=== PATIENT | male | born 1970 | race Asian ===

== ENCOUNTER 2018-10-06 06:26 | Inpatient (IN) | payer MEDICAID ==
[~2018-10-06 06:26] MED LIST: cefOXitin SODIUM 2 GM in NS 100 ML IV ONE
[2018-10-06] MEDS ORDERED: LR 1,000 ML IV ONE (06:46)
[2018-10-06] MEDS ORDERED: ROCURONIUM 50 MG/5 ML VIAL ONE (07:05)
[2018-10-06] MEDS ORDERED: HYDROXYCHLOROQUINE SULFATE 200 MG TAB PO ONE (07:22)
[2018-10-06] MEDS ORDERED: MIDAZOLAM 2 MG/2 ML VIAL IVP ONE (07:22)
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
--- NOTE | 2018-10-06 07:46 | PDHPUP ---
History & Physical Update H&P update statement: This history and physical update is based on an assessment of the patient which was completed after admission or registration (within 24 hours), but prior to the surgery/procedure. H&P update: H&P reviewed & patient examined, changes noted (Asked if I could also fix parastomal hernia. I described that I may be able to put sutures but would not do a mesh repair due to concurrent colectomy)
[2018-10-06] MEDS ORDERED: BUPIVACAINE 0.5% 30 ML SDV ONE (07:59)
[2018-10-06] MEDS ORDERED: PROPOFOL 200 MG/20 ML VIAL ONE (08:00)
[2018-10-06] MEDS ORDERED: fentaNYL 100 MCG/2 ML INJ ONE ×4 (08:00→14:10)
[2018-10-06] MEDS ORDERED: HYDROCORTISONE 100 MG/2 ML VIAL ONE (08:01)
[2018-10-06 08:08] LABS: PLATELET COUNT 283 10^3/uL (150-400)
[2018-10-06] MEDS ORDERED: PHENYLEPHRINE 10 MG/ML SDV ONE (08:39)
[2018-10-06] MEDS ORDERED: GLYCOPYRROLATE 0.2 MG/1 ML VIAL ONE ×2 (09:00)
[2018-10-06] MEDS ORDERED: cefOXitin SODIUM 2 GM in NS 100 ML IV ONE (12:00)
[2018-10-06] MEDS ORDERED: ONDANSETRON 4 MG/2 ML VIAL ONE (13:15)
[2018-10-06] MEDS ORDERED: HYDROmorphONE/DILAUDID 2 MG/ML INJ ONE ×2 (13:54→15:28)
[2018-10-06] MEDS ORDERED: ONDANSETRON DISINTEGRATING 4 MG TAB PO PRN ×2 (13:55→19:06)
[2018-10-06] MEDS ORDERED: NS 1,000 ML IV SCH (13:55)
[2018-10-06] MEDS ORDERED: HYDROmorphONE/DILAUDID 1 MG/ML INJ IVP PRN (13:55)
[2018-10-06] MEDS ORDERED: HYDROmorphONE/DILAUDID 2 MG/ML INJ IVP PRN (14:00)
[2018-10-06] MEDS ORDERED: MEPERIDINE 25 MG/0.5 ML AMP IVP PRN (14:00)
[2018-10-06] MEDS ORDERED: DIAZEPAM 5 MG/ML 1 ML SYR IVP PRN (14:00)
[2018-10-06] MEDS ORDERED: NALOXONE HCL 0.4 MG/ML INJ IVP PRN (14:00)
[2018-10-06] MEDS ORDERED: ALBUTEROL 3 ML DEYVIAL IH PRN (14:00)
[2018-10-06] MEDS ORDERED: PROMETHAZINE HCL 25 MG/ML INJ IVP PRN (14:00)
[2018-10-06] MEDS ORDERED: LR 500 ML IV PRN (14:00)
[2018-10-06] MEDS ORDERED: ONDANSETRON 4 MG/2 ML VIAL IVP PRN (14:00)
[2018-10-06] MEDS ORDERED: METOCLOPRAMIDE 10 MG/2 ML VIAL IVP PRN (14:00)
[2018-10-06] MEDS ORDERED: PHENYLEPHRINE HCL 100 MCG/ML SYR IVP PRN (14:00)
[2018-10-06] MEDS ORDERED: fentaNYL 100 MCG/2 ML INJ IVP PRN (14:00)
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
[2018-10-06] MEDS: HYDROCORTISONE 100 MG/2 ML VIAL IVP SCH ×2 (21:32→21:41)
[2018-10-06] MEDS: HYDROmorphONE/DILAUDID 1 MG/ML INJ IVP PRN (21:32)
[2018-10-07] MEDS: NS 1,000 ML IV SCH ×3 (02:09→21:37)
[2018-10-07] MEDS: HYDROCORTISONE 100 MG/2 ML VIAL IVP SCH ×2 (02:09→07:53)
[2018-10-07] MEDS: HYDROmorphONE/DILAUDID 1 MG/ML INJ IVP PRN ×3 (02:09→22:15)
[2018-10-07 06:16] LABS: PLATELET COUNT 271 10^3/uL (150-400)
[2018-10-07] MEDS: HYDROCODONE/APAP 5/325 TAB PO PRN ×3 (07:52→14:37)
--- NOTE | 2018-10-07 09:00 | POSTANESTH ---
Post Anesthetic Evaluation Cardiovascular Status: Normal, Stable Respiratory Status: Normal, Stable Level of Consciousness/Mental Status: Can Participate in Eval Pain Control: Adequate, Prn Tx Ordered Nausea/Vomiting Control: Adequate, Prn Tx Ordered Complications Possibly Related to Anesthesia: None Noted
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
--- NOTE | 2018-10-07 09:54 | PDMN ---
Medical Necessity Medical necessity: [facility] IP only surgery; cpt 65407 Sigmoid Colectomy
--- NOTE | 2018-10-07 11:29 | GOP ---
[f rep st] OPERATIVE REPORT DATE OF OPERATION: 10/07/2018 SURGEON: Steph Hale MD DIRECTOR OF ASSESSMENT: IRON Camacho. ANESTHESIA: General. ANESTHESIOLOGIST: Zaira Ramos MD. PREOPERATIVE DIAGNOSIS: 1. Diversion colitis. 2. Sacral decubitus ulcer. 3. Paraplegia. POSTOPERATIVE DIAGNOSIS: 1. Diversion colitis. 2. Sacral decubitus ulcer. 3. Paraplegia. 4. Sacral decubitus ulcer stage IV. PROCEDURE PERFORMED: Minimally invasive proctectomy. Debridement of skin, soft tissue, and bone of sacrum, with drain placement and closure. FINDINGS: Thickened distal colon. Initially had a leak at the rectal stump, which was oversewn. SPECIMENS: Colon. ESTIMATED BLOOD LOSS: 50 cc. INDICATIONS: The patient is a 47-year-old man, who is paraplegic. He had a colostomy performed. He is now suffering from diversion colitis. He also has a sacral decubitus ulcer. Typically flap is u sed in this situation, but he reports that he had closed well with primary closure over a drain. DESCRIPTION OF PROCEDURE: The patient was brought into the operating room, placed supine on the tabl e, and general anesthesia was administered. He had performed bowel prep with an enema since it was j ust the rectal stump. He was placed supine on the table, and general anesthesia was administered. H e was then placed in lithotomy position. His abdomen and perineum were prepped and draped in the usu al sterile fashion. I infiltrated all sites with 0.5% Marcaine prior to making incisions. I made an incision by his umbilicus. I elevated it, and I inserted a Veress needle. I did not feel that this penetrated through the peritoneum due to his body habitus. I then exchanged this for the long Veres s needle, which passed the hanging drop test, and his abdomen insufflated easily to a pressure of 15 mmHg. I was unable to get the standard 8 mm trocar through this site, and so I got an extra-long 8 m m trocar, placed the camera in place, and entered the abdominal space. I explored his abdomen. Ther e were a few adhesions towards the midline, but otherwise it was clear. Under direct vision, I place d an 8 mm trocar and enlarged this to a 12 middle mm trocar by the right iliac crest, and in a diagon al line from the right iliac crest to the left costal margin I placed 2 additional 8 mm trocars. He was placed in the Trendelenburg position. I brought the robot in and docked it. I placed the camera . Under direct vision, I introduced the and the Harmonic. An welder assistant port was made as well on the right lower abdomen. I moved to the console. I explored his pelvis. He had a very long rectal stump. There was a lot of omentum and generous mesentery, as well due to his body habitus. His sigmoid was tacked to the anterior abdominal wall. I was then able to divide this down while pro tecting the ostomy. I stayed very close to the sigmoid and rectal stump, and I continued my dissecti on down into the pelvis to the level of the peritoneal reflection. I inserted a dilator, and there w as approximately 6 to 7 cm length left of the rectal stump. I cut the rectum, and I tried to extract the specimen through the rectum, but it was simply too big. The epiploica were enlarged. The colon was enlarged in some portions, and I was concerned about tearing his anus while trying to extract th e rectum. I then took the specimen up. I grabbed the rectal stump, and then I used a stapler to jason se the rectum. When I performed an air insufflation test, there was a large leak. I had to perform a considerable amount of filling with 2-0 Vicryl to eliminate the leak. Once air insufflation test w as satisfactory, I undocked the robot. I enlarged the incision by the stapler port, and I extracted the colon specimen. Even with a small Kiran retractor and the fascial defect being enlarged, the sp ecimen was still very difficult to get out of the abdominal wall due to the edema in the epiploica. I removed also the staple line. I placed a 15 round silicone drain directed to his pelvis. This was sewn into place with 3-0 nylon. Clean closure was performed. I closed the fascia with [address] a[address] a subcutaneous drain due to his adiposity in the extraction site incision, and then I stapled th e incisions closed. Sterile dressings were applied. Next, he was rolled into the lateral position, and his bottom was prepped and draped in the usual fashion. I explored the area on his bottom, and i t traversed more towards the right buttock. I opened this area with electrocautery. I then used Mis ericka to debride the skin and soft tissue. Bone was palpable at the base of the wound. There were no overt signs of infection. Hemostasis was achieved. I placed a 19 round silicone drain in this area and sutured this into place with 3-0 nylon. Dressings were applied. He was placed back into the brannon pine position, awakened, extubated, and transferred to PACU in stable condition. /[id number]/MODL
[2018-10-07] MEDS: LOSARTAN POTASSIUM 50 MG TAB PO SCH (11:31)
[2018-10-07] MEDS: predniSONE 5 MG TAB PO SCH (14:36)
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
--- NOTE | 2018-10-07 20:48 | HOSPPROG ---
Hospitalist Progress Note Assessment/Plan: 47yo M T12 paraplegic s/p proctectomy with sacral stage IV decubitus ulcer debridement -POD #1 -wound/surgical management per Dr Hale Inflammatory arthritis -sees rheum Dr Simon in [place] [employer] -on low dose chronic steroids bc of recent flare Obesity HTN -home meds Anemia -watch for stability Dispo >2 mdnts for wound care/healing, unsure home vs SNF FULL code DVT prophy per surgery - Subjective: Says pain OK with meds, stool in colostomy firm. No CP/SOB. Wants to go home, has an old hospital bed at home. Willing to consider other options too. Objective: Vital Signs Temp Pulse Resp BP Pulse Ox 98.2 F 83 18 100/59 L 96 10/07/18 16:00 10/07/18 16:00 10/07/18 16:00 10/07/18 16:00 10/07/18 16:00 Laboratory Results 10/07/18 05:18 10/07/18 05:18 10/06/18 10/07/18 10/08/18 11:59 11:59 11:59 Intake Total 350 1225 Output Total 605 1400 Balance -255 -175 - Time Spent With Patient Time Spent with Patient: greater than 35 minutes (total floor time) Time Spent with Patient: Greater than 35 minutes spent on this patients care, greater than 50% of time spent counseling, educating, and coordinating care regarding the above mentioned plan. - Physical Exam Constitutional: no apparent distress, obese Eyes: anicteric sclera, EOMI Ears, Nose, Mouth, Throat: moist mucous membranes, hearing normal Cardiovascular: regular rate and rhythym, No edema Respiratory: no respiratory distress, no rales or rhonchi, clear to auscultation Gastrointestinal: normoactive bowel sounds, soft, non-tender abdomen, No guarding, No rebound, No distension Psychiatric: interacting appropriately, not anxious, not encephalopathic ICD10 Worksheet Patient Problems: Problems Problem Status Onset Diversion colitis Acute Sacral decubitus ulcer, stage IV Acute
[2018-10-08] MEDS: HYDROmorphONE/DILAUDID 1 MG/ML INJ IVP PRN ×2 (05:58→09:43)
[2018-10-08] MEDS: NS 1,000 ML IV SCH ×2 (06:02→16:28)
[2018-10-08] MEDS: HYDROXYCHLOROQUINE SULFATE 200 MG TAB PO SCH (08:26)
[2018-10-08] MEDS: LOSARTAN POTASSIUM 50 MG TAB PO SCH (08:27)
[2018-10-08] MEDS: predniSONE 5 MG TAB PO SCH (08:27)
--- NOTE | 2018-10-08 11:12 | SOAPPROG ---
SOAP Progress Note Assessment/Plan: Assessment/Plan: 47yo M T12 paraplegic s/p proctectomy with sacral stg IV decubitus ulcer debridement Full return of bowel function Tolerating regular diet Case management work on pressure relieving bed or pad at home Continue PRIMITIVO drains - will remove 2/3 prior to DC Seen with Dr. Hale. Dispo: home in am S: feeling well, pain is controlled, no new complaints O: laying in bed, NAD. No increased WOB Abd soft, nontender, nondistended Abdominal incisions intact with PRIMITIVO drains-serosanguinous fluids Sacral pressure ulcer drain producing serosanguinous fluid Objective: Vital Signs Temp Pulse Resp BP Pulse Ox 36.5 C 73 18 128/83 H 96 10/08/18 07:25 10/08/18 07:25 10/08/18 07:25 10/08/18 07:25 10/08/18 07:25 Laboratory Results 10/08/18 05:54 10/08/18 05:54 10/07/18 10/08/18 10/09/18 05:59 05:59 05:59 Intake Total 212 Output Total 081 5038 Balance -617 -3730 ICD10 Worksheet Patient Problems: Problems Problem Status Onset Diversion colitis Acute Sacral decubitus ulcer, stage IV Acute
[2018-10-08] MEDS ORDERED: POLYETHYLENE GLYCOL 3350 17 GM PKT PO PRN (11:23)
[2018-10-08] MEDS ORDERED: oxyCODONE IR 5 MG TAB PO PRN (11:23)
[2018-10-08] MEDS ORDERED: BISACODYL 10 MG SUPP PR PRN (11:23)
[2018-10-08] MEDS ORDERED: LACTULOSE 20 GM/30 ML UDCUP PO PRN (11:23)
[2018-10-08] MEDS: MAGNESIUM HYDROXIDE 30 ML UDCUP PO SCH (11:42)
--- NOTE | 2018-10-08 14:41 | CPEKG ---
Test Reason : OPEN Blood Pressure : / mmHG Vent. Rate : 081 BPM Atrial Rate : 081 BPM P-R Int : 135 ms QRS Dur : 105 ms QT Int : 376 ms P-R-T Axes : 000 057 047 degrees QTc Int : 437 ms Sinus rhythm Abnormal R-wave progression, early transition Significant artifact in limb leads Confirmed by Franklin Schroeder ([id number]) on 10/08/2018 2:41:02 PM Referred By: Steph Hale Confirmed By:Franklin Schroeder
--- NOTE | 2018-10-08 17:02 | ASMTCMCOM ---
CM Note CM Note Notes: Met with pt, he lives at home w/family help. [facility] is [facility] with [facility], Surgery would like him to have a pressure relieving mattress at home d/t decub ulcer. Pt states his bed is from [facility] but is 10 yrs old and not working well. CM left message for [facility] but hospitalist talked with pt about having his PCP order the mattress. Pt can dc to snf until new bed arrives. DC Plan: TBD Date Signed: 10/08/2018 05:01 PM Electronically Signed By:Addie Means RN
[2018-10-08] MEDS: oxyCODONE IR 5 MG TAB PO PRN (17:15)
[2018-10-08] MEDS: SENNOSIDES/DOCUSATE SODIUM TAB PO SCH (20:02)
--- NOTE | 2018-10-08 23:43 | HOSPPROG ---
Hospitalist Progress Note Subjective: Says bed so comfortable. No cp/sob/cough/n/v. Objective: Vital Signs Temp Pulse Resp BP Pulse Ox 97.8 F 72 16 122/80 H 96 10/08/18 23:34 10/08/18 23:34 10/08/18 23:34 10/08/18 23:34 10/08/18 23:34 Laboratory Results 10/08/18 05:54 10/08/18 05:54 10/07/18 10/08/18 10/09/18 11:59 11:59 11:59 Intake Total 350 1775 650 Output Total 605 1310 1540 Balance -255 -1775 -890 ICD10 Worksheet Patient Problems: Problems Problem Status Onset Diversion colitis Acute Sacral decubitus ulcer, stage IV Acute
[2018-10-09] MEDS: NS 1,000 ML IV SCH (03:00)
[2018-10-09] MEDS: oxyCODONE IR 5 MG TAB PO PRN ×3 (08:11→21:49)
[2018-10-09] MEDS: HYDROXYCHLOROQUINE SULFATE 200 MG TAB PO SCH (08:13)
[2018-10-09] MEDS: LOSARTAN POTASSIUM 50 MG TAB PO SCH (08:13)
[2018-10-09] MEDS: predniSONE 5 MG TAB PO SCH (08:14)
[2018-10-09] MEDS: SENNOSIDES/DOCUSATE SODIUM TAB PO SCH ×2 (08:14→21:49)
[2018-10-09] MEDS: MAGNESIUM HYDROXIDE 30 ML UDCUP PO SCH (08:16)
--- NOTE | 2018-10-09 11:16 | SOAPPROG ---
SOAP Progress Note Assessment/Plan: Assessment/Plan: 47yo M T12 paraplegic s/p proctectomy with sacral stg IV decubitus ulcer debridement Full return of bowel function Tolerating regular diet Case management work on pressure relieving bed or pad at home Continue drains until day of discharge Appreciate hospitalist Dispo: snf facility versus home with pressure relieving surface. S: feeling well, pain is controlled, no new complaints. He is very open to going to senior care facility if this will help him O: laying in bed, NAD. No increased WOB Abd soft, nontender, nondistended Incisions clean, dry and intact without evidence of infection Abdominal PRIMITIVO drains-old clot and serosanguinous fluid Sacral pressure ulcer drain - serosanguinous fluid Objective: Vital Signs Temp Pulse Resp BP Pulse Ox 36.6 C 72 16 134/84 H 95 10/09/18 08:00 10/09/18 08:00 10/09/18 08:00 10/09/18 08:00 10/09/18 08:00 Laboratory Results 10/09/18 05:14 10/09/18 05:14 10/08/18 10/09/18 10/10/18 05:59 05:59 05:59 Intake Total 2125 950 Output Total 1450 9542 Balance -1435 -2619 ICD10 Worksheet Patient Problems: Problems Problem Status Onset Diversion colitis Acute Sacral decubitus ulcer, stage IV Acute
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
[2018-10-10] MEDS: LOSARTAN POTASSIUM 50 MG TAB PO SCH (08:31)
[2018-10-10] MEDS: HYDROXYCHLOROQUINE SULFATE 200 MG TAB PO SCH (08:31)
[2018-10-10] MEDS: MAGNESIUM HYDROXIDE 30 ML UDCUP PO SCH (08:32)
[2018-10-10] MEDS: SENNOSIDES/DOCUSATE SODIUM TAB PO SCH ×2 (08:33→20:00)
[2018-10-10] MEDS: oxyCODONE IR 5 MG TAB PO PRN (08:37)
--- NOTE | 2018-10-10 08:54 | SOAPPROG ---
SOAP Progress Note Assessment/Plan: Assessment/Plan: 47yo M T12 paraplegic s/p proctectomy with sacral stg IV decubitus ulcer debridement Full return of bowel function Tolerating regular diet Case management work on pressure relieving bed or pad at home Continue drains until day of discharge Appreciate hospitalist Dispo: shelter facility versus home with pressure relieving surface - case management working on placement. S: feeling well, pain is controlled, no new complaints O: laying in bed, NAD. No increased WOB Abd soft, nontender, nondistended Abd incisions clean, dry and intact without evidence of infection. tamera in place Abdominal PRIMITIVO drains-old clot and serosanguinous fluid Sacral pressure ulcer drain - serosanguinous fluid Sacral incision CDI 10/10/18 13:40 Objective: Vital Signs Temp Pulse Resp BP Pulse Ox 36.6 C 81 18 115/74 100 10/10/18 04:00 10/10/18 04:00 10/10/18 04:00 10/10/18 04:00 10/10/18 04:00 Laboratory Results 10/09/18 05:14 10/09/18 05:14 10/09/18 10/10/18 10/11/18 05:59 05:59 05:59 Intake Total 950 1272 Output Total 4763 2935 Balance -7531 -8966 ICD10 Worksheet Patient Problems: Problems Problem Status Onset Diversion colitis Acute Sacral decubitus ulcer, stage IV Acute
[2018-10-10] MEDS: predniSONE 5 MG TAB PO SCH (11:18)
[2018-10-11] MEDS: oxyCODONE IR 5 MG TAB PO PRN ×2 (00:12→15:12)
--- NOTE | 2018-10-11 02:03 | HOSPPROG ---
Hospitalist Progress Note Assessment/Plan: 47yo M T12 paraplegic s/p proctectomy with sacral stage IV decubitus ulcer debridement -POD #3 -wound/surgical management per Dr Hale (discussed with Dr Herman today) Inflammatory arthritis -sees rheum Dr Simon in [place] -on low dose chronic steroids bc of recent flare Obesity HTN -home meds Anemia -watch for stability Dispo >2 mdnts for wound care/healing, unsure home vs SNF, appreciate CM assistance (only has CASSANDRA, not MCR so maybe difficult placement so will also work on bed for home on Thursday) FULL code DVT prophy per surgery - Subjective: Says doing well, no n/v/CP/SOB. Objective: Laboratory Results 10/09/18 05:14 10/09/18 05:14 - Time Spent With Patient Time Spent with Patient: greater than 35 minutes (total floor time) Time Spent with Patient: Greater than 35 minutes spent on this patients care, greater than 50% of time spent counseling, educating, and coordinating care regarding the above mentioned plan. - Physical Exam Constitutional: no apparent distress, obese Eyes: anicteric sclera, EOMI Ears, Nose, Mouth, Throat: moist mucous membranes, hearing normal Cardiovascular: regular rate and rhythym, No edema Respiratory: no respiratory distress, no rales or rhonchi, clear to auscultation Gastrointestinal: normoactive bowel sounds, No guarding, No rebound, No distension Skin: warm Psychiatric: interacting appropriately, not anxious, not encephalopathic ICD10 Worksheet Patient Problems: Problems Problem Status Onset Diversion colitis Acute Sacral decubitus ulcer, stage IV Acute
--- NOTE | 2018-10-11 02:08 | HOSPPROG ---
Hospitalist Progress Note Assessment/Plan: 47yo M T12 paraplegic s/p proctectomy with sacral stage IV decubitus ulcer debridement -POD #4 -wound/surgical management per Dr Hale (discussed with Dr Herman today) -would get optimal wound healing with appropriate mattress Inflammatory arthritis -sees rheum Dr Simon in [place] -on low dose chronic steroids bc of recent flare -decrease to 2.5 mg daily in AM and re-eval pain Obesity HTN -home meds Anemia -watch for stability -check iron labs Dispo >2 mdnts for wound care/healing, unsure home vs SNF, appreciate CM assistance (only has C[facility]DRA, not MCR so maybe difficult placement so will also work on bed for home on Thursday with [employer]) FULL code DVT prophy per surgery - Subjective: Says doing well. No n/v/CP/SOB. Stool softer. Objective: Vital Signs Temp Pulse Resp BP Pulse Ox 98.2 F 89 20 113/74 100 10/11/18 00:00 10/11/18 00:00 10/11/18 00:00 10/11/18 00:00 10/11/18 00:00 Laboratory Results 10/09/18 05:14 10/09/18 05:14 10/09/18 10/10/18 10/11/18 11:59 11:59 11:59 Intake Total 950 1272 Output Total 3564 7488 1506 Balance -2615 -2153 -1503 - Time Spent With Patient Time Spent with Patient: greater than 35 minutes (total floor time) Time Spent with Patient: Greater than 35 minutes spent on this patients care, greater than 50% of time spent counseling, educating, and coordinating care regarding the above mentioned plan. - Physical Exam Constitutional: no apparent distress, obese Eyes: anicteric sclera, EOMI Ears, Nose, Mouth, Throat: moist mucous membranes, hearing normal Cardiovascular: regular rate and rhythym, No edema Respiratory: no respiratory distress, no rales or rhonchi, clear to auscultation Gastrointestinal: normoactive bowel sounds, No distension Skin: warm Psychiatric: interacting appropriately, not anxious, not encephalopathic ICD10 Worksheet Patient Problems: Problems Problem Status Onset Diversion colitis Acute Sacral decubitus ulcer, stage IV Acute
[2018-10-11 05:31] LABS: PLATELET COUNT 251 10^3/uL (150-400)
[2018-10-11] MEDS: MAGNESIUM HYDROXIDE 30 ML UDCUP PO SCH (09:31)
[2018-10-11] MEDS: LOSARTAN POTASSIUM 50 MG TAB PO SCH (09:32)
[2018-10-11] MEDS: HYDROXYCHLOROQUINE SULFATE 200 MG TAB PO SCH (09:32)
[2018-10-11] MEDS: predniSONE 5 MG TAB PO SCH (09:33)
[2018-10-11] MEDS: SENNOSIDES/DOCUSATE SODIUM TAB PO SCH ×2 (09:40→21:12)
--- NOTE | 2018-10-11 10:46 | ASMTCMCOM ---
CM Note CM Note Notes: Spoke with surgeon's PA regarding possible discharge to home with specialty surface bed. CM contacted [facility] in [place] and they confirmed the medicaid auth for bed can take up to 5 days. Pt agreeable to SNF and understands that he will need a 30 day stay. ULTC-100 initiated and [employer] contacted to screen pt for LTC Medicaid and disability. Pt currently does not have Medicare. Referrals sent to the [facility] and [facility] in [place]. [facility] has 48 hours to approve pt for SNF placement. Rehab facility will need to apply for specialty bed for delivery to pt's home before discharge from SNF. CM to follow D/C Plan: SNF pending ACFL approval. Date Signed: 10/11/2018 10:45 AM Electronically Signed By:Mia Bonds
--- NOTE | 2018-10-11 10:48 | HOSPPROG ---
Hospitalist Progress Note Assessment/Plan: 47yo M T12 paraplegic s/p proctectomy with sacral stage IV decubitus ulcer debridement POD #5 wound/surgical management per Dr Lieberman would get optimal wound healing with appropriate mattress Inflammatory arthritis sees rheum Dr Simon in [place] on low dose chronic steroids bc of recent flare decrease to 2.5 mg daily in AM and re-eval pain taper to off over next 10 days Obesity HTN home meds Anemia anemia of chronic disease Dispo >2 mdnts for wound care/healing, unsure home vs SNF, appreciate CM assistance (only has C[facility]DRA, not MCR so maybe difficult placement so will also work on bed for home on Thursday with [email or web address]) FULL code DVT prophy per surgery - Subjective: case d/w dr lieberman. no active joint swelling Objective: Vital Signs Temp Pulse Resp BP Pulse Ox 36.5 C 82 16 111/75 98 10/11/18 08:00 10/11/18 08:00 10/11/18 08:00 10/11/18 08:00 10/11/18 08:00 Laboratory Results 10/11/18 05:12 10/11/18 05:12 10/10/18 10/11/18 10/12/18 05:59 05:59 05:59 Intake Total 1272 Output Total 9029 2809 Balance -2153 -2804 - Physical Exam Constitutional: no apparent distress, appears nourished Eyes: PERRL, anicteric sclera Ears, Nose, Mouth, Throat: moist mucous membranes, hearing normal Cardiovascular: regular rate and rhythym, no murmur, rub, or gallop Respiratory: no respiratory distress, no rales or rhonchi Gastrointestinal: normoactive bowel sounds, other (drain w sanguinous drainage) Genitourinary: tapia in urethra Skin: warm, normal color Musculoskeletal: No full muscle strength, No joint effusion, No joint tenderness Neurologic: AAOx3 ICD10 Worksheet Patient Problems: Problems Problem Status Onset Diversion colitis Acute Sacral decubitus ulcer, stage IV Acute
--- NOTE | 2018-10-11 16:46 | ASMTCMCOM ---
CM Note CM Note Notes: ADDENDUM: Gogo at [facility] was able to approve pt for SNF over the phone. CM had pt sign Maria D's forms and they were faxed back to her. Maria D requesting to be updated regarding pt's disposition. Date Signed: 10/11/2018 04:42 PM Electronically Signed By:Mia Bonds
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
[2018-10-12] MEDS: oxyCODONE IR 5 MG TAB PO PRN (01:04)
[2018-10-12] MEDS: HYDROCODONE/APAP 5/325 TAB PO PRN ×2 (07:32→21:29)
[2018-10-12] MEDS: HYDROXYCHLOROQUINE SULFATE 200 MG TAB PO SCH (09:59)
[2018-10-12] MEDS: SENNOSIDES/DOCUSATE SODIUM TAB PO SCH ×2 (10:00→20:03)
[2018-10-12] MEDS: predniSONE 5 MG TAB PO SCH (10:01)
[2018-10-12] MEDS: MAGNESIUM HYDROXIDE 30 ML UDCUP PO SCH (10:01)
[2018-10-12] MEDS: LOSARTAN POTASSIUM 50 MG TAB PO SCH (11:50)
--- NOTE | 2018-10-12 15:39 | SOAPPROG ---
SOAP Progress Note Assessment/Plan: Assessment/Plan: 47yo M T12 paraplegic s/p proctectomy with sacral stg IV decubitus ulcer debridement Full return of bowel function Tolerating regular diet Requires a pressure relieving bed or pad at home - [place] Continue drains - drain 2 (subcu) removed yesterday due to discomfort Appreciate hospitalist Dispo: pending placement. Likely DC home with pressure-relieving surface and home care S: feeling well, pain is controlled. Increased arthritis pain in R wrist O: laying in bed, NAD. No increased WOB Abd soft, nontender, nondistended Abd incisions clean, dry and intact without evidence of infection. tamera in place Abdominal PRIMITIVO drain - serosanguinous fluid Sacral pressure ulcer drain - scant serosanguinous fluid Sacral incision CDI, sutures intact. Dressing replaced Objective: Vital Signs Temp Pulse Resp BP Pulse Ox 36.6 C 76 16 90/62 L 97 10/12/18 11:38 10/12/18 11:38 10/12/18 11:38 10/12/18 11:38 10/12/18 11:38 Laboratory Results 10/11/18 05:12 10/11/18 05:12 10/11/18 10/12/18 10/13/18 05:59 05:59 05:59 Intake Total 500 500 Output Total 6628 3065 700 [facility] -2803 -2565 -200 ICD10 Worksheet Patient Problems: Problems Problem Status Onset Diversion colitis Acute Sacral decubitus ulcer, stage IV Acute
--- NOTE | 2018-10-12 16:12 | ASMTCMCOM ---
CM Note CM Note Notes: Discussed with surgeon's PA possibility of IpR for pt, who agreed it was a good option. [facility] Morel was considering pt (ULTC 100 complete) but was unsure due to cost of specialty bed. Orders placed for IpR wolf and [facility] contacted. Decision pending. CM also faxed orders for specialty bed to [facility] in case pt is unable to go to IpR or SNF. Please notify Maria D of [facility] ([phone]) when decision is made. Pt is current with [facility] who stated it would take 6 weeks to get a bed. Pt is open to using another [facility] agency as [facility] was less than helpful with the bed. [facility] is aware of pt. [facility] [employer] has evaluated pt and encouraged him to apply for Medicare. CM to follow. D/C Plan: [facility], v SNF v Home with specialty bed and HHC. Date Signed: 10/12/2018 04:11 PM Electronically Signed By:Mia Bonds
--- NOTE | 2018-10-12 17:10 | HOSPPROG ---
Hospitalist Progress Note Assessment/Plan: 47yo M T12 paraplegic s/p proctectomy with sacral stage IV decubitus ulcer debridement POD #5 wound/surgical management per Dr Hale would get optimal wound healing with appropriate mattress Inflammatory arthritis sees rheum Dr Simon in [place] on low dose chronic steroids bc of recent flare 2.5 thru 10/14 then 1.25 daily for 5 days then stop Obesity HTN home meds Anemia anemia of chronic disease Dispo >2 mdnts for wound care/healing, unsure home vs SNF, appreciate CM assistance (only has C[facility]DRA, not MCR so maybe difficult placement so will also work on bed for home on Thursday with [employer]) FULL code DVT prophy per surgery - Subjective: case d/w xenia MAGALLON Objective: Vital Signs Temp Pulse Resp BP Pulse Ox 36.7 C 84 16 101/67 95 10/12/18 15:53 10/12/18 15:53 10/12/18 15:53 10/12/18 15:53 10/12/18 15:53 Laboratory Results 10/11/18 05:12 10/11/18 05:12 10/11/18 10/12/18 10/13/18 05:59 05:59 05:59 Intake Total 500 500 Output Total 4501 3662 5630 Balance -0908 -5243 -855 - Physical Exam Constitutional: no apparent distress, appears nourished Eyes: PERRL, anicteric sclera Ears, Nose, Mouth, Throat: moist mucous membranes, hearing normal Cardiovascular: regular rate and rhythym, no murmur, rub, or gallop Respiratory: no respiratory distress, no rales or rhonchi Gastrointestinal: normoactive bowel sounds, soft, non-tender abdomen Genitourinary: no bladder fullness, No tapia in urethra Skin: warm, normal color Musculoskeletal: No full muscle strength Neurologic: AAOx3 ICD10 Worksheet Patient Problems: Problems Problem Status Onset Diversion colitis Acute Sacral decubitus ulcer, stage IV Acute
[2018-10-13] MEDS: oxyCODONE IR 5 MG TAB PO PRN ×3 (04:16→23:21)
[2018-10-13] MEDS: SENNOSIDES/DOCUSATE SODIUM TAB PO SCH ×2 (08:59→21:27)
[2018-10-13] MEDS: HYDROXYCHLOROQUINE SULFATE 200 MG TAB PO SCH (08:59)
[2018-10-13] MEDS: predniSONE 5 MG TAB PO SCH (09:00)
[2018-10-13] MEDS: LOSARTAN POTASSIUM 50 MG TAB PO SCH (09:00)
[2018-10-13] MEDS: MAGNESIUM HYDROXIDE 30 ML UDCUP PO SCH (09:01)
--- NOTE | 2018-10-13 10:35 | SOAPPROG ---
SOAP Progress Note Assessment/Plan: Assessment/Plan: 47yo M T12 paraplegic s/p proctectomy with sacral stg IV decubitus ulcer debridement Full return of bowel function Tolerating regular diet Requires a pressure relieving bed or pad at home Drain removal prior to discharge Appreciate hospitalist Dispo: pending placement - rehab vs SNF vs home. Likely DC home with pressure- relieving surface and home care S: feeling well, pain is controlled. Increased pain in bilateral upper extremities, worse with abduction O: laying in bed, NAD. No increased WOB Abd soft, nontender, nondistended Abd incisions clean, dry and intact without evidence of infection. tamera in place Abdominal PRIMITIVO drain - serosanguinous fluid - removed Sacral pressure ulcer drain - scant serosanguinous fluid BUE strength 5/5. Shoulder flexion without pain. Pain with shoulder abduction Objective: Vital Signs Temp Pulse Resp BP Pulse Ox 36.4 C 83 16 114/75 99 10/13/18 08:58 10/13/18 08:58 10/13/18 08:58 10/13/18 09:00 10/13/18 08:58 Laboratory Results 10/11/18 05:12 10/11/18 05:12 10/12/18 10/13/18 10/14/18 05:59 05:59 05:59 Intake Total 500 1000 Output Total 3949 4157 Balance -5839 -2424 ICD10 Worksheet Patient Problems: Problems Problem Status Onset Diversion colitis Acute Sacral decubitus ulcer, stage IV Acute
--- NOTE | 2018-10-13 17:46 | HOSPPROG ---
Hospitalist Progress Note Assessment/Plan: 47yo M T12 paraplegic s/p proctectomy with sacral stage IV decubitus ulcer debridement POD #6 wound/surgical management per Dr Hale would get optimal wound healing with appropriate mattress Inflammatory arthritis sees rheum Dr Simon in [place] on low dose chronic steroids bc of recent flare 2.5 thru 10/14 then 1.25 daily for 5 days then stop Obesity HTN home meds Anemia anemia of chronic disease Dispo >2 mdnts for wound care/healing, unsure home vs SNF, appreciate CM assistance (only has CASSANDRA, not MCR so maybe difficult placement so will also work on bed for home on Thursday with [employer]) FULL code DVT prophy per surgery - Subjective: doing well Objective: Vital Signs Temp Pulse Resp BP Pulse Ox 36.4 C 90 16 115/64 96 10/13/18 11:17 10/13/18 11:17 10/13/18 11:17 10/13/18 11:17 10/13/18 11:17 Laboratory Results 10/11/18 05:12 10/11/18 05:12 10/12/18 10/13/18 10/14/18 05:59 05:59 05:59 Intake Total 500 1000 850 Output Total 3069 6815 Balance -2565 -6612 850 - Physical Exam Constitutional: no apparent distress, appears nourished Eyes: PERRL, anicteric sclera Ears, Nose, Mouth, Throat: moist mucous membranes, hearing normal Cardiovascular: regular rate and rhythym, no murmur, rub, or gallop Respiratory: no respiratory distress, no rales or rhonchi Gastrointestinal: normoactive bowel sounds Genitourinary: tapia in urethra Skin: warm, normal color Musculoskeletal: No full muscle strength Neurologic: AAOx3 ICD10 Worksheet Patient Problems: Problems Problem Status Onset Diversion colitis Acute Sacral decubitus ulcer, stage IV Acute
[2018-10-14] MEDS: oxyCODONE IR 5 MG TAB PO PRN ×2 (04:35→10:21)
[2018-10-14] MEDS: predniSONE 5 MG TAB PO SCH (08:30)
[2018-10-14] MEDS: HYDROXYCHLOROQUINE SULFATE 200 MG TAB PO SCH (08:31)
[2018-10-14] MEDS: LOSARTAN POTASSIUM 50 MG TAB PO SCH (08:31)
[2018-10-14] MEDS: SENNOSIDES/DOCUSATE SODIUM TAB PO SCH (08:31)
--- NOTE | 2018-10-14 08:45 | SOAPPROG ---
SOAP Progress Note Assessment/Plan: Assessment/Plan: 47 year old male T12 paraplegic s/p proctectomy with sacral stage 4 decubitus ulcer debridement \ Regular diet Appreciate hospitalists DC when SNF Vs Rehab vs home with appropriate surface available DC PRIMITIVO drain prior to discharge S:Deltoids still sore and some tenderness right wristO: laying in bed, NAD. No increased WOB Sacral wound with some separation. PRIMITIVO drain scant fluid. No signs of infection 10/07/18 10:43 10/07/18 10:52 10/07/18 10:55 10/07/18 10:56 10/07/18 13:37 10/07/18 16:36 10/14/18 08:44 Objective: Vital Signs Temp Pulse Resp BP Pulse Ox 36.6 C 85 16 103/66 97 10/14/18 07:20 10/14/18 07:20 10/14/18 07:20 10/14/18 08:31 10/14/18 07:20 Laboratory Results 10/11/18 05:12 10/11/18 05:12 10/13/18 10/14/18 10/15/18 05:59 05:59 05:59 Intake Total 1000 1100 Output Total 4663 1480 Balance -1955 -380 ICD10 Worksheet Patient Problems: Problems Problem Status Onset Diversion colitis Acute Sacral decubitus ulcer, stage IV Acute - ICD10 Problem Qualifiers (1) Diversion colitis (2) Sacral decubitus ulcer, stage IV
[2018-10-14] MEDS: MAGNESIUM HYDROXIDE 30 ML UDCUP PO SCH (09:09)
--- NOTE | 2018-10-14 11:10 | PDIAF ---
- Diagnosis Diagnosis: diversion colitis and sacral decubitus ulcer Code Status: Full Code - Medication Management Discharge Medications: electronically signed and located in the Home Medication List. - Orders Services needed: Home Care, Registered Nurse, Certified Deoiling Machine Operator, Physical Therapy, Occupational Therapy Home Care Face to Face: I certify that this patient was under my care and that I had the required [id number] encounter meeting the encounter requirements on the discharge day. My findings support the fact that the patient is homebound as defined in Home Care Face to Face Continued: CMS Chapter 7 Medicare Benefits Manual 30.1.1 , The condition of the patient is such that there exists a normal inability to leave home and consequently, leaving home would require a considerable and taxing effort. Isolation Type: Contact Isolation Diet Recommendation: no restrictions on diet Diet Texture: Regular Texture Diet Wound Care Instructions: change dressing on sacrum every 1-2 days. Gazue and medipore tape is okay. Allevyn is okay if it will stay in place Additional Instructions: Offload pressure from sacral wound. F/u 1 week for staple removal. Call with worsening symptoms, questions or concerns. Change dressing on sacrum every 1-2 days - Follow Up Care Current Providers and Referrals: JESSICA SMART [Primary Care Provider] - Steph Hale MD [Medical Doctor] - follow up in 1 week (or [facility])
--- NOTE | 2018-10-14 12:05 | ASMTLACE ---
LACE Length of stay for Answers: 7-13 days current admission Acuity / Level of Answers: Yes Care: Did the patient have an inpatient admission? Comorbidities - select Answers: Opioid dependence all that apply / Chronic pain Other Notes: HTN # of Emergency department Answers: 0 visits in the last 6 months Score: 13 Date Signed: 10/14/2018 12:04 PM Electronically Signed By:REMY Warner
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
--- NOTE | 2018-10-14 12:16 | ASMTDCNOTE ---
Case Management Discharge Discharge Order Complete? Answers: Yes Patient to Obtain Answers: Independently Medications Transportation Arranged Answers: [facility] will Pick (Date 10/14/2018 01:30 PM & Time) EMTALA Complete Answers: No Case Management Transport Answers: No Form Complete Faxed Final Orders Answers: Yes Agency/Facility Transfer Answers: Yes Report Printed & Faxed to Receiving Agency Family Notified Answers: No Discharge Comments Notes: Pts case discussed w/ VINH Lopez. Pt is being d/c'd today. DC orders sent to [facility]. Pt has arranged transportation via [facility] stretcher. CM spoke to selinoh at [facility]. [facility] submitted alternating pressure pad to Medicaid and has not heard back but the order should be in process. [facility] is unable to accept pt at this time. CM available for changes. 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
[2018-10-14 13:08] VITALS: BP 102/66
[2018-10-15] MEDS ORDERED: predniSONE 1 MG TAB PO SCH (09:00)
--- NOTE | 2018-10-18 12:59 | GDS ---
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 SECONDARY DIAGNOSES: Hypertension, T12 paraplegia, rheumatoid arthritis. REASON FOR ADMISSION: 47-year-old man who developed a stage IV pressure ulcer of his sacrum as well as diversion colitis. He was admitted at this time for surgical intervention, pain control, and obse rvation. HOSPITAL COURSE: He was taken to the operating room by Dr. Steph Hale on 10/06/2018 for a robotic p roctectomy with debridement of skin and soft tissue of the stage IV sacral decubitus ulcer with prima ry closure over drain. Final pathology from the surgery revealed colitis. Postoperatively, he was p laced on a [place] mattress to offload any pressure from the decubitus ulcer. He was followed by t hospitalist to manage his comorbidities of rheumatoid arthritis and hypertension. There has been difficulty with placement upon discharge because of availability of a pressure relieving surface. He was finally discharged home on postoperative day #7. Pain was well controlled. Drains were removed . Tolerating regular diet and was ready for discharge home. DISCHARGE CONDITION: He is being discharged home in stable condition with an offloading surface and home care services. DISCHARGE MEDICATIONS: Sent home with prescription for prednisone. Instructed to resume losartan, P laquenil, oxycodone IR. See EMR for more details. DISCHARGE INSTRUCTIONS AND FOLLOWUP: Offload pressure from sacral wound. Follow up in 1 week for brannon ture and staple removal. Call with worsening symptoms, questions, or concerns. Change dressing on s acrum every 1-2 days. Follow up in 1 week. /[id number]/MODL
== END 2018-10-14 13:38 | disposition home health service (06) | DRG 231 ==
LOC: F3E 06:26
PROVIDERS: ADMIT Surgery; ATTEND Surgery
PROC: 0DTP4ZZ Resection of Rectum, Percutaneous Endoscopic Approach (ICD-10-PCS; principal; 2018-10-06 08:15)
PROC: 0JD90ZZ Extraction of Buttock Subcutaneous Tissue and Fascia, Open Approach (ICD-10-PCS; principal; 2018-10-06 08:15)
DX: K52.9 Noninfective gastroenteritis and colitis, unspecified (principal); L89.154 Pressure ulcer of sacral region, stage 4; G82.20 Paraplegia, unspecified; V49.88XD Car occupant (driver) (passenger) injured in other specified transport accidents, subsequent encounter; G47.33 Obstructive sleep apnea (adult) (pediatric); I10 Essential (primary) hypertension; M06.9 Rheumatoid arthritis, unspecified; E66.9 Obesity, unspecified; Z87.891 Personal history of nicotine dependence; Z93.3 Colostomy status
CPT/HCPCS: J0694; J1170; J1720; J2250; J2370; J2405; J2704; J3010; J7512